=== PATIENT | male | born 1935 | race Caucasian/White ===

== ENCOUNTER 2016-06-22 05:32 | Emergency (ER) | payer MEDICARE ==
[~2016-06-22] VITALS: Ht 188 cm; Wt 101.4 kg
[~2016-06-22 05:32] MED LIST: AMLO5TAB2 PO; CLOP75TA33 PO; FURO40TA5 PO; HYDR-3989 PO; LISI1TAB9 PO; ONDA4TAB7 PO; PRAV80TA23 PO
--- OUTSIDE RECORDS SUMMARY | 2016-06-22 05:38 | XMS REPORT | Referral Summary ---
Author Author [facility] Organization [facility] Address Unknown Phone Unavailable Care Team Providers Care Computer Processing Scheduler Name Role Phone Nilay Andujar Primary Care Physician [phone] Encounter VC Date(s): 03/12/16 - 03/12/16 [facility] [address] [place] [id number] Discharge Disposition: 01-Home or Self Care Attending Physician: Kamar Andujar MD Admitting Physician: Kamar Andujar MD Vital Signs Most recent to 1 oldest [Reference Range]: Peripheral Pulse 86 bpm Rate [60-100 bpm] (03/12/16 9:50 AM) Blood Pressure 104/64 mmHg [90-140/60-90 mmHg] (03/12/16 9:50 AM) SpO2 92 % (03/12/16 9:50 AM) Problem List Condition Effective Dates Status Health Status Informant Solar Active keratosis(Confirmed) Allergies(Confirmed) Resolved Carotid Resolved stenosis(Confirmed) Cataracts(Confirmed) Resolved Chicken Resolved pox(Confirmed) Chronic obstructive Active pulmonary disease (COPD)(Confirmed) Rash on Active scrotum(Confirmed) Fracture of femur Active (L)(Confirmed) Hiatal Resolved hernia(Confirmed) S/p Active appendectomy(Confirm ed) Hyperlipidemia(Confi Resolved rmed) Hypertension(Confirm Resolved ed) left femur 04/2012 Resolved fx(Confirmed) Chronic Active edema(Confirmed) Peptic ulcer 1983 Resolved disease(Confirmed)1 Acute exacerbation Active of emphysema(Confirmed) Skin Resolved cancer(Confirmed) Acute and chronic Active dermatitis(Confirmed ) Tobacco Active patient user(Confirmed) 1found on EGD put on PPI Allergies, Adverse Reactions, Alerts Substance Reaction Severity Status aspirin Active cephalexin Active Medications Advair Diskus 100 mcg-50 mcg inhalation powder 1 puffs, Inhalation, BID, # 28 Each, 0 Refill(s) Start Date: 08/23/15 Status: Ordered amLODIPine 5 mg oral tablet See Instructions, TAKE 1 TABLET EVERY DAY, # 90 tabs, 2 Refill(s), eRx: [facility], TAKE 1 TABLET EVERY DAY Start Date: 09/21/15 Status: Ordered clobetasol 0.05% topical cream See Instructions, APPLY TO AFFECTED AREA(S) TWO TIMES A DAY, # 30 unknown unit, eRx: [facility] #[id number], APPLY TO AFFECTED AREA(S) TWO TIMES A DAY Start Date: 10/17/15 Status: Ordered furosemide 40 mg oral tablet See Instructions, TAKE 1 TABLET TWICE DAILY, # 180 tabs, 1 Refill(s), eRx: [facility], TAKE 1 TABLET TWICE DAILY Start Date: 02/22/16 Status: Ordered lisinopril-hydrochlorothiazide 10 mg-12.5 mg oral tablet See Instructions, TAKE 1 TABLET EVERY DAY, # 90 tabs, 2 Refill(s), Pharmacy: [facility] Start Date: 12/27/15 Status: Ordered multivitamin Daily, 0 Refill(s) Start Date: 05/24/14 Status: Ordered [place] 5 mg-325 mg oral tablet 1 tabs, Oral, q6hr, as needed for pain, MUST LAST 30 DAYS, # 90 tabs, 0 Refill(s ) Start Date: 02/01/16 Status: Ordered ondansetron 4 mg oral tablet 4 mg 1 tabs, Oral, q8hr, as needed for nausea/vomiting, 0 Refill(s) Start Date: 03/11/16 Status: Ordered Plavix 75 mg oral tablet 75 mg 1 tabs, Oral, Daily, # 30 tabs, 1 Refill(s), Pharmacy: [facility] # [id number], 1 tabs Oral Daily Start Date: 01/25/15 Status: Ordered pravastatin 80 mg oral tablet See Instructions, TAKE 1 TABLET EVERY DAY, # 90 tabs, 2 Refill(s), eRx: [facility], TAKE 1 TABLET EVERY DAY Start Date: 09/21/15 Status: Ordered Results Chemistry Most recent to 1 oldest [Reference Range]: Sodium Lvl [135-144 140 mEq/L mEq/L] (03/12/16 10:28 AM) Potassium Lvl 4.2 mEq/L [3.5-5.2 mEq/L] (03/12/16 10:28 AM) Chloride [99-111 106 mEq/L mEq/L] (03/12/16 10:28 AM) CO2 [23-31 mEq/L] 22 mEq/L *LOW* (03/12/16 10:28 AM) AGAP [3-20] 12 (03/12/16 10:28 AM) BUN [8-26 mg/dL] 28 mg/dL *HI* (03/12/16 10:28 AM) Glucose Lvl [70-99 98 mg/dL mg/dL] (03/12/16 10:28 AM) Creatinine Lvl 1.70 mg/dL [0.72-1.25 mg/dL] *HI* (03/12/16 10:28 AM) eGFR [>60 mL/min] 39 mL/min 1 *ABN* (03/12/16 10:28 AM) Calcium Lvl 9.2 mg/dL [8.9-10.5 mg/dL] (03/12/16 10:28 AM) Troponin [0.00-0.03 0.01 ng/mL ng/mL] (03/12/16 10:28 AM) PSA (wihout Reflex 0.9 ng/mL 2 Free) [0.0-6.5 (03/12/16 10:28 AM) ng/mL] 1Result Comment: Multiply eGFR results by 1.21 for race. 2Result Comment: AUA PSA Best Practice Guidelines: Age-Adjusted PSA Values by Ethnic Group Age Range Asians - Caucasians Americans 40-49 0-2.0 0-2.0 0-2.5 50-59 0-3.0 0-4.0 0-3.5 60-69 0-4.0 0-4.5 0-4.5 70-79 0-5.0 0-5.5 0-6.5 Immunizations Given and Recorded Vaccine Date Status Refusal Reason influenza virus vaccine, inactivated1 11/16/14 Recorded influenza virus vaccine, inactivated 01/04/14 Recorded influenza virus vaccine, inactivated 11/28/08 Recorded influenza virus vaccine, inactivated 03/07/08 Recorded influenza virus vaccine, live 12/15/12 Given pneumococcal 13-valent conjugate vaccine2 11/16/14 Recorded zoster vaccine live 11/15/14 Given 1Location History: [facility] 2Location History[facility] Procedures Procedure Date Related Diagnosis Body Site Appendectomy1 11/23/14 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 Preventive health guidelines for men include the following velasquez practices: A routine yearly physical is a good way to check with your health care provider about your health and preventative screening. It is a chance to share any concerns and updates on your health and to receive a thorough exam. Visit your dentist for a routine exam and preventative care every 6 months. [place] your teeth twice a day and floss once a day. Good oral hygiene prevents tooth decay and gum disease. The frequency of eye exams is based on your age, health, family medical history, use of contact lenses, and other factors. Follow your health care provider's recommendations for frequency of eye exams. Eat a healthy diet. Foods such as vegetables, fruits, whole grains, low- fat dairy products, and lean protein foods contain the nutrients you need without too many calories. Decrease your intake of foods high in solid fats, added sugars, and salt. Eat the right amount of calories for you.Get information about a proper diet from your health care provider, if necessary. Regular physical exercise is one of the most important things you can do for your health. Most adults should get at least 150 minutes of moderate- intensity exercise (any activity that increases your heart rate and causes you to sweat) each week. In addition, most adults need muscle-strengthening exercises on 2 or more days a week. Maintain a healthy weight. The body mass index (BMI) is a screening tool to identify possible weight problems. It provides an estimate of body fat based on height and weight. Your health care provider can find your BMI and can help you achieve or maintain a healthy weight.For adults 20 years and older: A BMI below 18.5 is considered underweight. A BMI of 18.5 to 24.9 is normal. A BMI of 25 to 29.9 is considered overweight. A BMI of 30 and above is considered obese. Maintain normal blood lipids and cholesterol levels by exercising and minimizing your intake of saturated fat. Eat a balanced diet with plenty of fruit and vegetables. Blood tests for lipids and cholesterol should begin at age 20 and be repeated every 5 years. If your lipid or cholesterol levels are high, you are over 50, or you are at high risk for heart disease, you may need your cholesterol levels checked more frequently.Ongoing high lipid and cholesterol levels should be treated with medicines if diet and exercise are not working. If you smoke, find out from your health care provider how to quit. If you do not use tobacco, do not start. Lung cancer screening is recommended for adults aged 5580 years who are at high risk for developing lung cancer because of a history of smoking. A yearly low-dose CT scan of the lungs is recommended for people who have at least a 61-symq-dhuh history of smoking and are a current smoker or have quit within the past 15 years. A pack year of smoking is smoking an average of 1 pack of cigarettes a day for 1 year (for example: 1 pack a day for 30 years or 2 packs a day for 15 years). Yearly screening should continue until the smoker has stopped smoking for at least 15 years. Yearly screening should be stopped for people who develop a health problem that would prevent them from having lung cancer treatment. If you choose to drink alcohol, do not have more than 2 drinks per day. One drink is considered to be 12 ounces (355 mL) of beer, 5 ounces (148 mL) of wine, or 1.5 ounces (44 mL) of liquor. Avoid use of street drugs. Do not share needles with anyone. Ask for help if you need support or instructions about stopping the use of drugs. High blood pressure causes heart disease and increases the risk of stroke. Your blood pressure should be checked at least every 12 years. Ongoing high blood pressure should be treated with medicines, if weight loss and exercise are not effective. If you are 4579 years old, ask your health care provider if you should take aspirin to prevent heart disease. Diabetes screening is done by taking a blood sample to check your blood glucose level after you have not eaten for a certain period of time (fasting). If you are not overweight and you do not have risk factors for diabetes, you should be screened once every 3 years starting at age 45. If you are overweight or obese and you are 4070 years of age, you should be screened for diabetes every year as part of your cardiovascular risk assessment. Colorectal cancer can be detected and often prevented. Most routine colorectal cancer screening begins at the age of 50 and continues through age 75. However, your health care provider may recommend screening at an earlier age if you have risk factors for colon cancer. On a yearly basis, your health care provider may provide home test kits to check for hidden blood in the stool. Use of a small camera at the end of a tube to directly examine the colon (sigmoidoscopy or colonoscopy) can detect the earliest forms of colorectal cancer. Talk to your health care provider about this at age 50, when routine screening begins. Direct exam of the colon should be repeated every 510 years through age 75, unless early forms of precancerous polyps or small growths are found. People who are at an increased risk for hepatitis B should be screened for this virus. You are considered at high risk for hepatitis B if: You were born in a country where hepatitis B occurs often. Talk with your health care provider about which countries are considered high risk. Your parents were born in a high-risk country and you have not received a shot to protect against hepatitis B (hepatitis B vaccine). You have HIV or AIDS. You use needles to inject street drugs. You live with, or have sex with, someone who has hepatitis B. You are a man who has sex with other men (MSM). You get hemodialysis treatment. You take certain medicines for conditions such as cancer, organ transplantation, and autoimmune conditions. Hepatitis C blood testing is recommended for all people born from 1945 through 1965 and any individual with known risks for hepatitis C. Practice safe sex. Use condoms and avoid high-risk sexual practices to reduce the spread of sexually transmitted infections (STIs). STIs include gonorrhea, chlamydia, syphilis, trichomonas, herpes, HPV, and human immunodeficiency virus (HIV). Herpes, HIV, and HPV are viral illnesses that have no cure. They can result in disability, cancer, and . If you are a man who has sex with other men, you should be screened at least once per year for: HIV. Urethral, rectal, and pharyngeal infection of gonorrhea, chlamydia, or both. If you are at risk of being infected with HIV, it is recommended that you take a prescription medicine daily to prevent HIV infection. This is called preexposure prophylaxis (PrEP). You are considered at risk if: You are a man who has sex with other men (MSM) and have other risk factors. You are a heterosexual man, are sexually active, and are at increased risk for HIV infection. You take drugs by injection. You are sexually active with a partner who has HIV. Talk with your health care provider about whether you are at high risk of being infected with HIV. If you choose to begin PrEP, you should first be tested for HIV. You should then be tested every 3 months for as long as you are taking PrEP. A one-time screening for abdominal aortic aneurysm (AAA) and surgical repair of large AAAs by ultrasound are recommended for men ages 65 to 75 years who are current or former smokers. Healthy men should no longer receive prostate-specific antigen (PSA) blood tests as part of routine cancer screening. Talk with your health care provider about prostate cancer screening. Testicular cancer screening is not recommended for adult males who have no symptoms. Screening includes self-exam, a health care provider exam, and other screening tests. Consult with your health care provider about any symptoms you have or any concerns you have about testicular cancer. Use sunscreen. Apply sunscreen liberally and repeatedly throughout the day. You should seek shade when your shadow is shorter than you. Protect yourself by wearing long sleeves, pants, a wide-brimmed hat, and sunglasses year round, whenever you are outdoors. Once a month, do a whole-body skin exam, using a mirror to look at the skin on your back. Tell your health care provider about new moles, moles that have irregular borders, moles that are larger than a pencil eraser, or moles that have changed in shape or color. Stay current with required vaccines (immunizations). Influenza vaccine. All adults should be immunized every year. Tetanus, diphtheria, and acellular pertussis (Td, Tdap) vaccine. An adult who has not previously received Tdap or who does not know his vaccine status should receive 1 dose of Tdap. This initial dose should be followed by tetanus and diphtheria toxoids (Td) booster doses every 10 years. Adults with an unknown or incomplete history of completing a 3-dose immunization series with Td-containing vaccines should begin or complete a primary immunization series including a Tdap dose. Adults should receive a Td booster every 10 years. Varicella vaccine. An adult without evidence of immunity to varicella should receive 2 doses or a second dose if he has previously received 1 dose. Human papillomavirus (HPV) vaccine. Males aged 1121 years who have not received the vaccine previously should receive the 3-dose series. Males aged 2226 years may be immunized. Immunization is recommended through the age of 26 years for any male who has sex with males and did not get any or all doses earlier. Immunization is recommended for any person with an immunocompromised condition through the age of 26 years if he did not get any or all doses earlier. During the 3-dose series, the second dose should be obtained 48 weeks after the first dose. The third dose should be obtained 24 weeks after the first dose and 16 weeks after the second dose. Zoster vaccine. One dose is recommended for adults aged 60 years or older unless certain conditions are present. Measles, mumps, and rubella (MMR) vaccine. Adults born before 1957 generally are considered immune to measles and mumps. Adults born in 1957 or later should have 1 or more doses of MMR vaccine unless there is a contraindication to the vaccine or there is laboratory evidence of immunity to each of the three diseases. A routine second dose of MMR vaccine should be obtained at least 28 days after the first dose for students attending postsecondary schools, health care workers, or international travelers. People who received inactivated measles vaccine or an unknown type of measles vaccine during should receive 2 doses of MMR vaccine. People who received inactivated mumps vaccine or an unknown type of mumps vaccine before 1978 and are at high risk for mumps infection should consider immunization with 2 doses of MMR vaccine. Unvaccinated health care workers born before 1956 who lack laboratory evidence of measles, mumps, or rubella immunity or laboratory confirmation of disease should consider measles and mumps immunization with 2 doses of MMR vaccine or rubella immunization with 1 dose of MMR vaccine. Pneumococcal 13-valent conjugate (PCV13) vaccine. When indicated, a person who is uncertain of his immunization history and has no record of immunization should receive the PCV13 vaccine. All adults 65 years of age and older should receive this vaccine. An adult aged 19 years or older who has certain medical conditions and has not been previously immunized should receive 1 dose of PCV13 vaccine. This PCV13 should be followed with a dose of pneumococcal polysaccharide (PPSV23) vaccine. Adults who are at high risk for pneumococcal disease should obtain the PPSV23 vaccine at least 8 weeks after the dose of PCV13 vaccine. Adults older than 65 years of age who have normal immune system function should obtain the PPSV23 vaccine dose at least 1 year after the dose of PCV13 vaccine. Pneumococcal polysaccharide (PPSV23) vaccine. When PCV13 is also indicated, PCV13 should be obtained first. All adults aged 65 years and older should be immunized. An adult younger than age 65 years who has certain medical conditions should be immunized. Any person who resides in a retirement or long -term care facility should be immunized. An adult smoker should be immunized. People with an immunocompromised condition and certain other conditions should receive both PCV13 and PPSV23 vaccines. People with human immunodeficiency virus (HIV) infection should be immunized as soon as possible after diagnosis. Immunization during chemotherapy or radiation therapy should be avoided. Routine use of PPSV23 vaccine is not recommended for [place] Indians, [place] Natives, or people younger than 65 years unless there are medical conditions that require PPSV23 vaccine. When indicated, people who have unknown immunization and have no record of immunization should receive PPSV23 vaccine. One-time revaccination 5 years after the first dose of PPSV23 is recommended for people aged 1964 years who have chronic kidney failure, nephrotic syndrome, asplenia, or immunocompromised conditions. People who received 12 doses of PPSV23 before age 65 years should receive another dose of PPSV23 vaccine at age 65 years or later if at least 5 years have passed since the previous dose. Doses of PPSV23 are not needed for people immunized with PPSV23 at or after age 65 years. Meningococcal vaccine. Adults with asplenia or persistent complement component deficiencies should receive 2 doses of quadrivalent meningococcal conjugate (MenACWY-D) vaccine. The doses should be obtained at least 2 months apart. Microbiologists working with certain meningococcal bacteria, recruits, people at risk during an outbreak, and people who travel to or live in countries with a high rate of meningitis should be immunized. A first-year college student up through age 21 years who is living in a residence [place] should receive a dose if he did not receive a dose on or after his 16th birthday. Adults who have certain high-risk conditions should receive one or more doses of vaccine. Hepatitis A vaccine. Adults who wish to be protected from this disease, have chronic liver disease, work with hepatitis A-infected animals, work in hepatitis A research labs, or travel to or work in countries with a high rate of hepatitis A should be immunized. Adults who were previously unvaccinated and who anticipate close contact with an international adoptee during the first 60 days after arrival in the [place] from a country with a high rate of hepatitis A should be immunized. Hepatitis B vaccine. Adults should be immunized if they wish to be protected from this disease, are under age 59 years and have diabetes, have chronic liver disease, have had more than one sex partner in the past 6 months, may be exposed to blood or other infectious body fluids, are household contacts or sex partners of hepatitis B positive people, are clients or workers in certain care facilities, or travel to or work in countries with a high rate of hepatitis B. Haemophilus influenzae type b (Hib) vaccine. A previously unvaccinated person with asplenia or sickle cell disease or having a scheduled splenectomy should receive 1 dose of Hib vaccine. Regardless of previous immunization, a recipient of a hematopoietic stem cell transplant should receive a 3-dose series 612 months after his successful transplant. Hib vaccine is not recommended for adults with HIV infection. Preventive Service / Frequency Ages 19 to 39 Blood pressure check. / Every 35 years. Lipid and cholesterol check. / Every 5 years beginning at age 20. Hepatitis C blood test. / For any individual with known risks for hepatitis C. Skin self-exam. / Monthly. Influenza vaccine. / Every year. Tetanus, diphtheria, and acellular pertussis (Tdap, Td) vaccine. / Consult your health care provider. 1 dose of Td every 10 years. Varicella vaccine. / Consult your health care provider. HPV vaccine. / 3 doses over 6 months, if 26 or younger. Measles, mumps, rubella (MMR) vaccine. / You need at least 1 dose of MMR if you were born in 1957 or later. You may also need a second dose. Pneumococcal 13-valent conjugate (PCV13) vaccine. / Consult your health care provider. Pneumococcal polysaccharide (PPSV23) vaccine. / 1 to 2 doses if you smoke cigarettes or if you have certain conditions. Meningococcal vaccine. / 1 dose if you are age 19 to 21 years and a first-year college student living in a residence [place], or have one of several medical conditions. You may also need additional booster doses. Hepatitis A vaccine. / Consult your health care provider. Hepatitis B vaccine. / Consult your health care provider. Haemophilus influenzae type b (Hib) vaccine. / Consult your health care provider. Ages 40 to 64 Blood pressure check. / Every year. Lipid and cholesterol check. / Every 5 years beginning at age 20. Lung cancer screening. / Every year if you are aged 5580 years and have a 95-bhzr-wiqh history of smoking and currently smoke or have quit within the past 15 years. Yearly screening is stopped once you have quit smoking for at least 15 years or develop a health problem that would prevent you from having lung cancer treatment. Fecal occult blood test (FOBT) of stool. / Every year beginning at age 50 and continuing until age 75. You may not have to do this test if you get a colonoscopy every 10 years. Flexible sigmoidoscopy or colonoscopy. / Every 5 years for a flexible sigmoidoscopy or every 10 years for a colonoscopy beginning at age 50 and continuing until age 75. Hepatitis C blood test. / For all people born from 1945 through 1965 and any individual with known risks for hepatitis C. Skin self-exam. / Monthly. Influenza vaccine. / Every year. Tetanus, diphtheria, and acellular pertussis (Tdap/Td) vaccine. / Consult your health care provider. 1 dose of Td every 10 years. Varicella vaccine. / Consult your health care provider. Zoster vaccine. / 1 dose for adults aged 60 years or older. Measles, mumps, rubella (MMR) vaccine. / You need at least 1 dose of MMR if you were born in 1957 or later. You may also need a second dose. Pneumococcal 13-valent conjugate (PCV13) vaccine. / Consult your health care provider. Pneumococcal polysaccharide (PPSV23) vaccine. / 1 to 2 doses if you smoke cigarettes or if you have certain conditions. Meningococcal vaccine. / Consult your health care provider. Hepatitis A vaccine. / Consult your health care provider. Hepatitis B vaccine. / Consult your health care provider. Haemophilus influenzae type b (Hib) vaccine. / Consult your health care provider. Ages 65 and over Blood pressure check. / Every year. Lipid and cholesterol check./ Every 5 years beginning at age 20. Lung cancer screening. / Every year if you are aged 5580 years and have a 77-durl-tsdl history of smoking and currently smoke or have quit within the past 15 years. Yearly screening is stopped once you have quit smoking for at least 15 years or develop a health problem that would prevent you from having lung cancer treatment. Fecal occult blood test (FOBT) of stool. / Every year beginning at age 50 and continuing until age 75. You may not have to do this test if you get a colonoscopy every 10 years. Flexible sigmoidoscopy or colonoscopy. / Every 5 years for a flexible sigmoidoscopy or every 10 years for a colonoscopy beginning at age 50 and continuing until age 75. Hepatitis C blood test. / For all people born from 1945 through 1965 and any individual with known risks for hepatitis C. Abdominal aortic aneurysm (AAA) screening. / A one-time screening for ages 65 to 75 years who are current or former smokers. Skin self-exam. / Monthly. Influenza vaccine. / Every year. Tetanus, diphtheria, and acellular pertussis (Tdap/Td) vaccine. / 1 dose of Td every 10 years. Varicella vaccine. / Consult your health care provider. Zoster vaccine. / 1 dose for adults aged 60 years or older. Pneumococcal 13-valent conjugate (PCV13) vaccine. / 1 dose for all adults aged 65 years and older. Pneumococcal polysaccharide (PPSV23) vaccine. / 1 dose for all adults aged 65 years and older. Meningococcal vaccine. / Consult your health care provider. Hepatitis A vaccine. / Consult your health care provider. Hepatitis B vaccine. / Consult your health care provider. Haemophilus influenzae type b (Hib) vaccine. / Consult your health care provider. Family history and personal history of risk and conditions may change your health care provider's recommendations. This information is not intended to replace advice given to you by your health care provider. Make sure you discuss any questions you have with your health care provider. Document Released: 04/28/2002 Document Revised: 03/23/2015 Document Reviewed: [employer] Interactive Patient Education 2016 [employer] No follow up information was provided. Extracted from: Title: Office Visit Note Author: Kamar Andujar MD Date: 03/12/16 Assessment/Plan Acute renal insufficiency Lab to be repeated. Ordered: Office Visit Level 4 Est 27329 Encounter for prostate cancer screening Lab for a PSA Ordered: Office Visit Level 4 Est 88330 Sweaty face Etiology unknown and the present timehe is doing fine. Ordered: Office Visit Level 4 Est 83295
--- OUTSIDE RECORDS SUMMARY | 2016-06-22 05:38 | XMS REPORT | Continuity of Care Document ---
Author Author [facility] Organization [facility] Address Unknown Phone Unavailable Allergies Active Description Code Type Severity Reaction Onset Reported/Identified Relationship to Patient Clinical Status Yes aspirin NKMA N/A N/A 07/14/2013 Yes caffeine NKMA N/A N/A 07/14/2013 Yes cephalexin NKMA N/A N/A 07/14/2013 Medications Problems Procedures Results Encounters ACCT No. Visit Date/Time Discharge Status Pt. Type Provider Facility Loc./Unit Complaint [id number] 05/09/2013 08:43:00 05/09/2013 23 :59:59 CLS Outpatient
--- OUTSIDE RECORDS SUMMARY | 2016-06-22 05:39 | XMS REPORT | Continuity of Care Document ---
Author Author [facility] Organization [facility] Address Unknown Phone Unavailable Care Team Providers Care Bag Worker Name Role Phone LAINA ANDUJAR MD Primary Care Physician [phone] Insurance Providers Guarantor Mckayla Porter Address [address] [place] [id number] CP Email DENIED/NO TO PT PORTAL Payer [employer] Policy Number [id number] Subscriber's Name Mckayla Porter Relationship 17 Self Chief Complaint and Reason for Visit Chief Complaint Cardiac Complaint Reason for Visit Nausea & vomiting Problems Active Problems Medical Problem Onset Date Status Acute appendicitis Unknown Resolved Acute respiratory failure with hypoxia and hypercapnia Unknown Chronic Aneurysm of iliac artery Unknown Chronic Backache not otherwise specified Unknown Chronic COPD (chronic obstructive pulmonary disease) Unknown Chronic Encephalopathy acute Unknown Resolved Fever Unknown Resolved Hypertension Unknown Chronic Hypoxia Unknown Chronic Peripheral vascular disease Unknown Chronic ST elevation Unknown Resolved Sepsis Unknown Resolved Stage III chronic kidney disease Unknown Chronic Thrombocytopenia Unknown Resolved Tobacco abuse disorder Unknown Chronic Vascular occlusion Unknown Acute Weakness generalized Unknown Chronic Past Problems Medical Problem Onset Date Nausea & vomiting Unknown Medications Current Home Medications Medication Dose Units Route Directions Days Qty Instructions Start Date Amlodipine Besylate 5 Mg Tablet 5 Mg Oral Bedtime 11/20/14 Clopidogrel Bisulfate (Clopidogrel) 75 Mg Tablet 75 Mg Oral Daily 11/20/14 Furosemide 40 Mg Tablet 40 Mg Oral Twice A Day 03/10/16 Hydrocodone/Acetaminophen (Hydrocodon-Acetaminophen 5-325) 5-325 Tablet 1 Tab Oral Three Times A Day as needed for Pain 03/10/16 Lisinopril/Hydrochlorothiazide (Lisinopril-Hctz 10-12.5 Mg Tab) 1 Each Tablet 1 Tab Oral Daily 11/20/14 Ondansetron (Zofran Odt) 4 Mg Tab.rapdis 4 Mg Oral Q8h @ 0100/0900/1700 7 Tablet Orally disintegrating tablet 03/10/16 Pravastatin Sodium 80 Mg Tablet 80 Mg Oral Bedtime 11/20/14 Past Home Medications Medication Directions Ordered Status Pravastatin , Oral Daily 05/06/13 Discontinued Social History Social History Problem Response Recorded Date/Time Onset Date Status Chewing Tobacco Status No 06/07/2013 9:15am Not Applicable Not Applicable Hx Substance Use No 03/10/2016 2:05pm Not Applicable Not Applicable Hx Alcohol Use No 03/10/2016 2:05pm Not Applicable Not Applicable Has the pt used tobacco in the last 12 months Yes 11/20/2014 10:17pm Not Applicable Not Applicable Tobacco Usage none 11/21/2014 8:05am Not Applicable Not Applicable Query Response Start Date Stop Date Smoking Status Current every day smoker Hospital Discharge Instructions No hospital discharge instructions. Plan of Care Discharge Date 03/10/16 2:20pm Disposition 01 DISCHARGED HOME, SELF-CARE Condition at Discharge Stable Instructions/Education Provided DI for Nausea -- Adult Prescriptions See Medication Section Referrals LAINA ANDUJAR MD Address: [address] [place] [address] [place] [phone] Additional Instructions/Education I do want you to monitor your symptoms at home. If you have any return of the vomiting, sweating, or any chest pain, chest pressure, upper back, jaw, or shoulder pain then I do want you to return to the ER for reevaluation tonight. Otherwise follow up with Dr. Andujar office tomorrow for reevaluation. Care Plan and Goals Physician Care Plan Problem:Nausea/vomiting-resolved Goal: Follow up with primary care provider Instructions: Take medications and follow care plan as discussed/written Functional Status No functional status results. Allergies, Adverse Reactions, Alerts Allergen Type Severity Reaction Status Last Updated Codeine Allergy Unknown Active 06/07/13 Cephalexin Allergy Unknown Active 06/07/13 Immunizations Query Response on File Recorded Date/Time Hx Influenza Vaccination Y 2014 11/20/14 10:17pm Hx Pneumococcal Vaccination Y 2014 11/20/14 10:17pm Hx Influenza Vaccination Y 2014 11/20/14 10:17pm Influenza Vaccine Hx 12/2903/10/16 2:05pm Vital Signs Acute Vital Signs Vital Response Date/Time Temperature (Fahrenheit) 97.4 deg F (96.8 - 99.1) 03/10/2016 2:28pm Temperature (Calculated Celsius) 36.05823 degrees C (36.0 - 37.3) 03/10/2016 2:28pm Pulse Rate (adult) 90 bpm (60 - 100) 03/10/2016 2:28pm Respiratory Rate 27 breaths/min (10 - 20) 03/10/2016 2:28pm O2 Sat by Pulse Oximetry 92 % (90 - 100) 03/10/2016 2:28pm Blood Pressure 122/62 mm Hg 03/10/2016 2:28pm Results Laboratory Results Test Name Result Units Flags Reference Collection Date/Time Result Date/ Time Comments White Blood Count 9.7 T/MM3 4.5-11.0 03/10/2016 1:12pm 03/10/2016 1: 20pm Red Blood Count 4.77 M/MM3 4.50-5.90 03/10/2016 1:12p03/10/2016 1: 20pm Hemoglobin 15.1 GM/DL 13.5-17.5 03/10/2016 1:03/10/2016 1:20pm Hematocrit 44.8 % 41-53 03/10/2016 1:12p03/10/2016 1:20pm Mean Corpuscular Volume 93.9 UM3 80-100 03/10/2016 1:12p03/10/2016 1: 20pm Mean Corpuscular Hemoglobin 31.7 UUG 26-34 03/10/2016 1:12p2015 1:20pm Mean Corpuscular Hemoglobin Concent 33.7 GM/DL 31-37 03/10/2016 1:12p03/10/2016 1:20pm RDW Standard Deviation 45.3 FL 36.9-50.2 03/10/2016 1:12p03/10/2016 1 :20pm Platelet Count 136 T/MM3 130-400 03/10/2016 1:12p03/10/2016 1:20pm Mean Platelet Volume 10.1 UM3 9.4-12.4 03/10/2016 1:12pm 03/10/2016 1: 20pm Neutrophils (%) (Auto) 74.0 % H 33-66 03/10/2016 1:[facility] 03/10/2016 1: 20pm Lymphocytes (%) (Auto) 16.8 % L 23-45 03/10/2016 1:[facility] 03/10/2016 1: 20pm Monocytes (%) (Auto) 4.2 % 0-9.0 03/10/2016 1:[facility] 03/10/2016 1:20pm Eosinophils (%) (Auto) 4.4 % H 0-4 03/10/2016 1:[facility] 03/10/2016 1:20pm Basophils (%) (Auto) 0.4 % 0-2 03/10/2016 1:[facility] 03/10/2016 1:20pm Immature Granulocyte % (Auto) 0.2 % 0.0-0.5 03/10/2016 1:[facility] 2015 1:20pm Absolute Neutrophils (auto) 7.2 T/MM3 1.8-7.7 03/10/2016 1:[facility] 2015 1:20pm Absolute Lymphocytes (auto) 1.6 T/MM3 1-4.8 03/10/2016 1:[facility] 2015 1:20pm Absolute Monocytes (auto) 0.4 T/MM3 0-0.8 03/10/2016 1:[facility] 03/10/2016 1:20pm Absolute Eosinophils (auto) 0.4 T/MM3 0-0.5 03/10/2016 1:[facility] 2015 1:20pm Absolute Basophils (auto) 0.0 T/MM3 0-0.2 03/10/2016 1:[facility] 03/10/2016 1:20pm Absolute Immature Granulocyte (auto 0.02 T/MM3 0.00-0.03 03/10/2016 1: [facility] 03/10/2016 1:20pm Icterus Index < 2 0-7 03/10/2016 1:[facility] 03/10/2016 1:31pm Chemistry Specimen Hemolysis < 15 0-25 03/10/2016 1:[facility] 03/10/2016 1 :31pm 0-25: Specimen Exhibited No Hemolysis. Turbidity < 20 0-20 03/10/2016 1:[facility] 03/10/2016 1:31pm Sodium Level 140 MEQ/L 134-144 03/10/2016 1:[facility] 03/10/2016 1:31pm Potassium Level 3.5 MEQ/L L 3.6-5 03/10/2016 1:[facility] 03/10/2016 1:31pm Chloride Level 102 MEQ/L 98-107 03/10/2016 1:[facility] 03/10/2016 1:31pm Carbon Dioxide Level 24 MEQ/L 22-30 03/10/2016 1:[facility] 03/10/2016 1: 31pm Anion Gap 14 MEQ/L 5-15 03/10/2016 1:[facility] 03/10/2016 1:31pm Blood Urea Nitrogen 29.0 MG/DL H 9-20 03/10/2016 1:[facility] 03/10/2016 1: 31pm Creatinine 1.6 MG/DL H 0.8-1.5 03/10/2016 1:[facility] 03/10/2016 1:31pm BUN/Creatinine Ratio 18 RATIO 6-26 03/10/2016 1:[facility] 03/10/2016 1:31pm Glomerular Filtration Rate Calc 42 03/10/2016 1:[facility] 03/10/2016 1: 31pm Glucose Level 145 MG/DL H 75-110 03/10/2016 1:[facility] 03/10/2016 1:31pm Calculated Osmolality 278 MOSM/KG 261-280 03/10/2016 1:[facility] 03/10/2016 1:31pm Calcium Level 9.4 MG/DL 8.4-10.2 03/10/2016 1:[facility] 03/10/2016 1:31pm Troponin I < 0.012 ng/ml 0-0.12 03/10/2016 1:[facility] 03/10/2016 1:43pm Troponin values with a difference of 55% increase from orginal troponin value represent a true biological DELTA value. (%increase Calc=Orginal Troponin value, divided by subsequent Troponin value, multiplied by 100) RL-Cwh-L-Type Natriuretic Peptide 99 PG/ML 0-175 03/10/2016 1:13pm 1:46pm Rule in cut points: <50 years old=450; 50-75 years old=900; >75 years old=1800; When utilizing ProBNP rule-in cut points, adjustment for impaired renal function is typically not required. Procedures No known history of procedures. Encounters Encounter Location Arrival/Admit Date Discharge/Depart Date Attending Provider Departed Emergency Room [facility] 03/10/16 12:59pm 03/10/16 2: 20pm LISSETH [place] DO Recent Diagnosis
[2016-06-22 05:45] VITALS: Ht 188 cm; Wt 101.4 kg
[2016-06-22] MEDS ORDERED: LISI10TA7 PO (06:29)
[2016-06-22] MEDS ORDERED: CHOL200026 PO (06:30)
--- OUTSIDE RECORDS SUMMARY | 2016-06-22 06:31 | XMS REPORT | Continuity of Care Document ---
Author Author [facility] Organization [facility] Address Unknown Phone Unavailable Allergies Active Description Code Type Severity Reaction Onset Reported/Identified Relationship to Patient Clinical Status Yes aspirin NKMA N/A N/A 07/14/2013 Yes caffeine NKMA N/A N/A 07/14/2013 Yes cephalexin NKMA N/A N/A 07/14/2013 Medications Problems Procedures Results Encounters ACCT No. Visit Date/Time Discharge Status Pt. Type Provider Facility Loc./Unit Complaint [id number] 05/09/2013 08:43:00 05/09/2013 23 :59:59 CLS Outpatient
--- NOTE | 2016-06-22 07:10 | NUR ---
PT STATUS PT RESTING COMFORTABLY ON COT, DENIES ANY C/O AT THIS TIME AND SHOWS NO SIGNS OF DISTRESS. PT'S IN ROOM WITH PT, CALL LIGHT IN REACH.
[2016-06-22] MEDS ORDERED: IOHEXOL 350 MG/ML 75ml INJECTION ONE (07:15)
[2016-06-22] MEDS ORDERED: IOHEXOL 350 MG/ML 50ml INJECTION ONE ×2 (07:15)
[2016-06-22] MEDS ORDERED: NORMAL SALINE 100 ML ONE (07:16)
--- NOTE | 2016-06-22 07:45 | NUR ---
PROVIDER DR. MCCLELLAND IN ROOM WITH PT.
[2016-06-22 07:54] LABS: BASOPHILS % (AUTO) 0.5 % (0-2); EOSINOPHILS # (AUTO) 0.4 T/MM3 (0-0.5); HGB - HEMOGLOBIN 15.5 GM/DL (13.5-17.5); IMMATURE GRANULOCYTE # (AUTO) 0.02 T/MM3 (0.00-0.03); IMMATURE GRANULOCYTE % (AUTO) 0.3 % (0.0-0.5); LYMPHOCYTES # (AUTO) 1.9 T/MM3 (1-4.8); LYMPHOCYTES % (AUTO) 25.2 % (23-45); MEAN CORPUSCULAR HGB 31.6 UUG (26-34); MEAN CORPUSCULAR HGB CONC(MCHC 33.7 GM/DL (31-37); MEAN CORPUSCULAR VOLUME 93.9 UM3 (80-100); MEAN PLATELET VOLUME 10.2 UM3 (9.4-12.4); MONOCYTES # (AUTO) 0.4 T/MM3 (0-0.8); MONOCYTES % (AUTO) 5.6 % (0-9.0); NEUTROPHILS #(AUTO)-ABSOLUTE 4.6 T/MM3 (1.8-7.7); NEUTROPHILS % (AUTO) 62.4 % (33-66); WBC - WHITE BLOOD COUNT 7.4 T/MM3 (4.5-11.0)
--- NOTE | 2016-06-22 07:56 | ERPDOC ---
Departure Disposition Decision Date: Jun 22, 2016 Disposition Decision Time: 10:45 Disposition: 01 DISCHARGED HOME, SELF-CARE Impression Impression Impression: Primary Impression: Peripheral vascular disease Severity: Mild Condition: Improved Seen By: Physician only Referrals: LAINA DUNBAR MD (PCP) 2 Days Patient Instructions: Peripheral Vascular Disease (ED) Problems/Meds/Labs Reviewed?: Yes Medications reviewed and manag: Yes Additional Instructions: Follow up with Dr. Jass Potter in 2 days. Return if your condition worsens or changes in any manner. Follow up care ordered?: Yes Mental Status: Alert, Oriented HPI - General Medical General Chief Complaint: General Stated Complaint: JACKELINE FEELING RUNNING DOWN LEG Time Seen by Provider: 06:24 Source: patient Exam Limitations: no limitations HPI - General Medical Initial Comments 81-year-old male presents to the emergency department with a chief complaint of a warm feeling in his right lower extremity. Patient noted onset of symptoms several months ago. Symptoms have been intermittent in nature. Patient denies any pain or discomfort. There are no other complaints or associated symptoms. Patient presents for evaluation due to the fact that he has multiple stents placed in the arterial vessels of bilateral lower extremities. Patient sees Dr. Jass Hill for vascular treatment. No other complaints or associated symptoms. He was at home when the symptoms began. Symptoms have been intermittent in nature for the past several months. Patient states that the symptoms became more pronounced early this morning. He does not note any exacerbating or remitting factors. Occurred At: home Onset: other (Intermittent) Allergies: Coded Allergies: aspirin (Verified Allergy, Unknown, 06/22/16) cephalexin (Verified Allergy, Unknown, 06/22/16) codeine (Verified Allergy, Unknown, 06/22/16) Past History Past Medical History Metabolic: hypercholesterolemia, hypertension Cardiac: aortic aneurysm Hx Echocardiogram: No Musculoskeletal: back pain Surgical History Cardiac: aneurysm repair, carotid endarterectomy Joint: hip, other, shoulder Family History Family PMH: FOUND: diabetes Vaccines Hx Influenza Vaccination: Yes (2014) Hx Pneumococcal Vaccination: Yes (2014) Social History Smoking Status: Never smoker Substance Use Type: does not use Alcohol Intake: none Sexuality: female partner Review of Systems Constitutional Constitutional: DENIES: chills, fever Eyes General: DENIES: erythema, exudate Lids/Accessories: DENIES: erythema, swelling Vision: DENIES: acuity, blurring ENMT Ears: DENIES: drainage, erythema Hearing: DENIES: hearing loss Balance: DENIES: ataxia, falling to one side Sinuses: DENIES: congestion, pain Nose: DENIES: nosebleeds, pain Mouth/Throat: DENIES: painful swallowing, sore throat Teeth: DENIES: pain Jaw: DENIES: pain Cardiovascular Cardiac: DENIES: chest pain, dyspnea on exertion Rhythm/Rate: DENIES: irregular beat, palpitations Vascular: DENIES: pedal edema, unilateral swelling Pulmonary Respiratory: DENIES: cough, dyspnea, pleuritic chest pain, sputum GI Upper Abdomen: DENIES: nausea, pain, vomiting Lower Abdomen: DENIES: diarrhea, pain General: DENIES: dysuria, frequency Musculoskeletal General: DENIES: joint pain, tenderness Integumentary Skin: DENIES: itching, rash Neurological General: DENIES: headache, numbness, weakness Psychiatric Psychiatric: DENIES: emotional instability, suicidal ideation/attempt Endocrine Endocrine: DENIES: polydipsia, polyphagia Hematologic/Lymphatic Hematologic/Lymphatic: DENIES: frequent nosebleeds, lymphadenopathy Physical Exam General General Nourishment: well nourished, well developed, appears stated age, no acute distress, adult General Body Habitus: well groomed Vitals and Pain First Documented Vital Signs Date Time Temp Pulse Resp B/P Pulse Ox O2 Delivery O2 Flow Rate FiO2 06/22/16 05:45 98.3 89 20 166/81 95 Room Air Weight: Kilograms: 101.400 Height (feet): 6 Height (inches): 2.00 Triage Pain Scale: RN VS reviewed by Provider: Yes Normal Exams: Head: Normocephalic w/o trauma Eyes: Pupils are PERRLA w/ EOMI, No scleral icterus, irritation, or foreign bodies noted ENMT: No facial trauma, nasal exudates, pharyngeal erythema, or exudates are noted Dental: No fractured, loose, or missing teeth noted Neck: Full range of motion, without adenopathy, JVD, bruits or thyromegaly Chest/Resp: Clear all patel, with good airflow, and symmetry bilaterally CV: Regular rate and rhythm, without murmur or gallop, Pulses 2+ all extremities, capillary refill, <2 seconds all ext., no pedal edema noted Abdomen: Bowel sounds positive, soft, non-tender, non-distended, no hepatosplenomegaly, masses or bruits noted Lymphatic: No lymphadenopathy, or lymphedema noted Musculoskeletal: No tenderness, or deformity noted, good range of motion, all extremities Integumentary: No rashes, hives, or bruising noted, hair and nails, without abnormality Neurologic: Patient is alert, and oriented, cranial nerves, motor/sensory/ cerebellar, exams w/o gross deficits, to observation Psychiatric: Patient exhibits, appropriate attention, emotion and affect Cardiovascular (brief) Capillary Refill: <2 sec Pulses: all distal extremities Comments Strong palpable pulses in the pedal and femoral regions. Progress Results/Orders Orders Procedure Category Date Status Time Cbc W/Auto LAB 06/22/16 Complete Diff-Reflex Manual Cmp - Comprehensive LAB 06/22/16 Complete Metabolic Troponin I W LAB 06/22/16 Complete Hemolysis Index EKG EKG 06/22/16 Logged Cta Aorta W/ Bilat CT 06/22/16 Taken Runoff 06:28 Us Venous Duplex, US 06/22/16 Taken Lower Ext Bi 06:28 Iohexol (Omnipaque) PHA 06/22/16 Complete 07:15 Iohexol (Omnipaque) PHA 06/22/16 Complete 07:15 Iohexol (Omnipaque) PHA 06/22/16 Complete 07:15 Normal Saline (Ns) PHA 06/22/16 Complete 07:16 Us Arterial Extremity US 06/22/16 Taken Lower Bi 07:52 Normal Saline (Ns) PHA 06/22/16 Complete 09:30 Lab Results Laboratory Tests Test 06/22/16 07:30 White Blood Count 7.4T/MM3 Red Blood Count 4.90M/MM3 Hemoglobin 15.5GM/DL Hematocrit 46.0% Mean Corpuscular Volume 93.9UM3 Mean Corpuscular Hemoglobin 31.6UUG Mean Corpuscular Hemoglobin Concent 33.7GM/DL RDW Standard Deviation 47.3FL Platelet Count 145T/MM3 Mean Platelet Volume 10.2UM3 Immature Granulocyte % (Auto) 0.3% Neutrophils (%) (Auto) 62.4% Lymphocytes (%) (Auto) 25.2% Monocytes (%) (Auto) 5.6% Eosinophils (%) (Auto) 6.0% Basophils (%) (Auto) 0.5% Absolute Immature Granulocyte (auto 0.02T/MM3 Absolute Neutrophils (auto) 4.6T/MM3 Absolute Lymphocytes (auto) 1.9T/MM3 Absolute Monocytes (auto) 0.4T/MM3 Absolute Eosinophils (auto) 0.4T/MM3 Absolute Basophils (auto) 0.0T/MM3 Turbidity < 20 Sodium Level 147MEQ/L Potassium Level 3.9MEQ/L Chloride Level 106MEQ/L Carbon Dioxide Level 24MEQ/L Anion Gap 17MEQ/L Blood Urea Nitrogen 25.0MG/DL Creatinine 1.5MG/DL Glomerular Filtration Rate Calc 45 BUN/Creatinine Ratio 17RATIO Glucose Level 112MG/DL Calculated Osmolality 287MOSM/KG Calcium Level 9.8MG/DL Total Bilirubin 0.70MG/DL Icterus Index < 2 Aspartate Amino Transf (AST/SGOT) 30U/L Alanine Aminotransferase (ALT/SGPT) 35U/L Alkaline Phosphatase 105U/L Troponin I < 0.012ng/ml Total Protein 7.8G/DL Albumin 4.3G/DL Globulin 3.5G/DL Albumin/Globulin Ratio 1.2RATIO Chemistry Specimen Hemolysis < 15 Medications Current ED Medications Iohexol (Omnipaque) 1 bottle STK-MED ONCE .ROUTE ; Start 06/22/16 at 07:15; Stop 06/22/16 at 07:16; Status DC Iohexol (Omnipaque) 1 bottle STK-MED ONCE .ROUTE ; Start 06/22/16 at 07:15; Stop 06/22/16 at 07:16; Status DC Iohexol 1 bottle 1 bottle STK-MED ONCE .ROUTE ; Start 06/22/16 at 07:15; Stop 06/22/16 at 07:16; Status DC Sodium Chloride 100 ml @ As Directed STK-MED ONCE .ROUTE ; Start 06/22/16 at 07: 16; Stop 06/22/16 at 07:17; Status DC Sodium Chloride (NS) 500 ml @ 999 mls/hr Q31M ONCE IV Last administered on 06/22t 09:32; Start 06/22/16 at 09:30; Stop 06/22/16 at 10:00; Status DC Progress Progress Labs/imaging were discussed in detail with the patient and family and questions are answered. Patient was given 250 mL normal saline intravenously times one in the emergency department after receiving the CTA. Patient does have a creatinine of 1.5. Discussion regarding the risks versus benefits of receiving the CT scan and contrast are discussed in detail with the patient and family who are in agreement with proceeding with a CT scan. They verbalized agreement and understanding of the risks. Patient is discussed with his vascular surgeon Dr. Jass Hill who is in agreement with the current plan of management. Dr. Hill's recommendation is to discharge the patient home and have him follow-up with the office early next week on Thursday. Patient is discharged home in improved condition. He declines offered analgesic pain medication in the emergency Department. Patient is to return to the emergency department if his condition worsens or changes in any manner. He is to follow up as instructed. EKG EKG : Rate: 60-100 Rhythm: sinus QRS: RBBB Intervals: normal ST/T: normal Interpreted by: signing physician CT CT : CT: Other (CTA Aorta with Runoffs: Chronic findings with no acute occlusion. ) Ultrasound US : Ultrasound: Venous Doppler Interpretation: Normal, Faxed Report (Arterial Doppler US: Negative. ) BARRETT MCCLELLAND DO Jun 22, 2016 07:56
--- NOTE | 2016-06-22 08:00 | NUR ---
ULTRASOUND ULTRASOUND IN ROOM WITH PT.
[2016-06-22 08:28] LABS: ALBUMIN 4.3 G/DL (3.5-5.0); ALBUMIN/GLOBULIN RATIO 1.2 RATIO (1.1-2.2); ALKALINE PHOSPHATASE 105 U/L (38-126); ALT (SGPT) 35 U/L (21-72); ANION GAP 17 MEQ/L (5-15); AST (SGOT) 30 U/L (17-59); BUN/CREATININE RATIO 17 RATIO (6-26); CALCIUM 9.8 MG/DL (8.4-10.2); CHLORIDE 106 MEQ/L (98-107); CO2 - CARBON DIOXIDE 24 MEQ/L (22-30); CREATININE 1.5 MG/DL (0.8-1.5); GLOMERULAR FILTRATION RATE 45; GLUCOSE 112 MG/DL (75-110); POTASSIUM 3.9 MEQ/L (3.6-5); SODIUM 147 MEQ/L (134-144); TOTAL PROTEIN 7.8 G/DL (6.3-8.2)
--- NOTE | 2016-06-22 08:52 | NUR ---
CT PT TO CT PER COT.
--- NOTE | 2016-06-22 09:15 | NUR ---
PROVIDER DR MCCLELLAND IN ROOM WITH PT.
--- NOTE | 2016-06-22 09:22 | NUR ---
AMBULATION/RESTROOM PT IS AMBULATORY TO RESTROOM WITH USE OF CANE, DENIES ANY CURRENT COMPLAINTS AND HAS NO DIFFICULTY WITH AMBULATION.
[2016-06-22] MEDS ORDERED: NORMAL SALINE 500 ML IV ONE (09:30)
[2016-06-22 11:12] VITALS: BP 154/72; PULSE 92; RESP 20; TEMP 96.9; O2SAT 94
--- NOTE | 2016-06-23 08:32 | DI ---
Indication: ITS.REASON: swelling PROCEDURE: US VENOUS DUPLEX, LOWER EXT BI: Encounter: Initial Comparison: None Technique: Color Doppler duplex and grayscale sonographic imaging of both lower extremities was performed. Findings: There is no evidence for acute deep venous thrombosis in either thigh. Specifically, serial graded compression was performed from the inguinal ligament to the popliteal bifurcation, bilaterally, demonstrating appropriate compressibility of the deep venous system. In addition, color and pulsed Doppler demonstrate appropriate spontaneous flow, variation with respiration, and augmentation with calf compression. At the ankle, normal flow is identified in the posterior tibial veins; these vessels are also normal in caliber. Impression: No evidence of acute DVT in either lower limb. There is a preliminary report by [facility]. .
--- NOTE | 2016-06-23 08:33 | DI ---
Indication: ITS.REASON: vascular evaluation PROCEDURE: CTA AORTA W/ BILAT RUNOFF: Encounter: Initial Comparison: CT angiogram of the abdomen dated January 16, 2015 Technique: CT angiography of the chest, abdomen and pelvis was performed with and without intravenous contrast. CT angiography of both lower this was also performed with and without contrast. Coronal and sagittal MIP reconstructed images were created and reviewed along with three-dimensional surface shaded volume rendered imaging of the aorta and arterial vascular system of the body and lower extremities. Contrast: Omnipaque 350 120mL Findings: CT angiogram of the chest with and without: Findings: Noncontrast images show no evidence of intramural hematoma. Scattered atherosclerotic plaque in the cardiac valves coronary arteries and aortic arch along with great vessel origins. Postcontrast images show no evidence of aortic aneurysm or dissection. Scattered calcified and noncalcified plaque present. No pneumothorax. Moderate to severe emphysema with some pulmonary fibrotic changes in the basis. No pulmonary masses. No pleural effusion. The central airways are patent. No axillary or mediastinal adenopathy. CT angiogram of the abdomen and pelvis with and without contrast: No evidence of aortic dissection or aneurysm. Hepatic arterial anatomy is conventional. 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 Stable occlusion of the bilateral internal iliac artery origins. No evidence of new arterial occlusion. Stable mild to moderate renal artery stenosis on the right. Bladder is unremarkable. The visualized small and large bowel loops are within normal limits. Liver shows a small probable cyst which is unchanged. Additional stable low-attenuation focus at the lateral left lobe of the liver is unchanged and presumably benign. 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 No adenopathy. Small hiatal hernia. CTA runoff of the lower extremities: The right common and superficial femoral arteries are patent. There is a patent right SFA stent and possibly a stent within the profunda femoris artery is well. There are areas of mild stenosis in the mid to distal SFA without occlusion. The right popliteal artery is patent with scattered areas of mild stenosis. The right anterior tibial artery appears occluded in the midportion, however it appeared patent on the Doppler ultrasound. The peroneal and posterior tibial arteries appear patent through the ankle. There is subcutaneous edema in both lower extremities. The left common and superficial femoral arteries are patent as is the left profunda femoris. Occasional areas of mild stenosis in the left mid to distal SFA without occlusion. The left popliteal artery is patent with mild to moderate stenosis distally. Tibioperoneal trunk is patent there is three-vessel runoff of the left lower extremity through the ankle. Bone windows show chronic appearing compression fractures at T12, L2 and L4. Orthopedic hardware in the left femur. Impression: CT angiogram of the chest with and without: No evidence of acute aortic syndrome or acute intrathoracic disease process. CT angiogram of the abdomen and pelvis with without: Stable procedure. 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 No new occlusion or rupture. CT runoff of the lower extremities: Three vessel runoff bilaterally. There is a preliminary report by [facility]. .
--- NOTE | 2016-06-23 08:35 | DI ---
Indication: ITS.REASON: pain, hx stents ble PROCEDURE: US ARTERIAL EXTREMITY LOWER BI: Technique: Grayscale color and duplex Doppler imaging was performed of the arterial tree of both legs. Findings: RIGHT LEG (cm/sec) Common Femoral 192 Superficial Femoral Proximal 114 Mid 135 Distal 96.5 Popliteal 44.8 RADHA-dist 61.4 [employer]-dist 40.8 LEFT LEG (cm/sec) Common Femoral 159 Superficial Femoral Proximal 101 Mid 198 Distal 69.3 Popliteal 46.6 RADHA-dist 34 [employer]-dist 43.6 Right SFA stent appears patent. Scattered atherosclerotic plaque throughout both lower extremity. IMPRESSION: No arterial occlusion seen. Mild stenosis in the bilateral SFAs, left greater than right. Multiphasic waveforms bilaterally. There is a preliminary report by [facility]. .
== END 2016-06-22 11:12 | disposition home or self-care (01) ==
LOC: ED 05:32
DX: I73.9 Peripheral vascular disease, unspecified (principal); I10 Essential (primary) hypertension
CPT/HCPCS: 75635; 80053; 84484; 85025; 93005; 93925; 93970; 96360; 99284; J7050; Q9967